=== PATIENT | male | born 1990 | race Two or more races ===

== ENCOUNTER 2022-12-04 20:26 | Emergency (ER) | payer BC, OTHER ==
[~2022-12-04] VITALS: Ht 177.8 cm; Wt 100.0 kg
[2022-12-04] MEDS ORDERED: FAMOTIDINE 10 MG/ML 2 ML VIAL IVP ONE (20:45)
[2022-12-04] MEDS ORDERED: SODIUM CHLORIDE 0.9% 1,000 ML IV ONE (20:45)
[2022-12-04] MEDS ORDERED: MethylPREDNISolone SOD SUCC 125 MG/2 ML VIAL IVP ONE (20:45)
[2022-12-04] MEDS ORDERED: PRED-554 PO (21:04)
[2022-12-04] MEDS ORDERED: EPIN0.3P3 IM (21:04)
[2022-12-04 21:43] VITALS: BP 122/79
== END 2022-12-04 22:00 | disposition home or self-care (01) ==
LOC: EMS 20:31
DX: L50.0 Allergic urticaria (principal)
CPT/HCPCS: 99284; 96374; 96361; 96375; J3490; J2930; J7030

== ENCOUNTER 2022-12-21 18:57 | Emergency (ER) | payer BC, OTHER ==
[~2022-12-21] VITALS: Ht 180.3 cm; Wt 100.0 kg
[~2022-12-21 18:57] MED LIST: EPIN0.3P3 IM; PRED-554 PO
[2022-12-21 22:37] VITALS: BP 132/74
== END 2022-12-21 22:37 | disposition home or self-care (01) ==
LOC: EMS 18:58
DX: S43.102A Unspecified dislocation of left acromioclavicular joint, initial encounter (principal); W18.39XA Other fall on same level, initial encounter; Y93.59 Activity, other involving other sports and athletics played individually; Y92.89 Other specified places as the place of occurrence of the external cause; Y99.8 Other external cause status
CPT/HCPCS: 99283